=== PATIENT | male | born 1970 | race African-American/Black ===

== ENCOUNTER 2019-03-25 21:24 | Inpatient (IN) | payer SELFPAY ==
--- NOTE | 2019-03-25 22:07 | RAD ---
EXAM: 4 views of the right knee HISTORY: Knee pain COMPARISON: None FINDINGS: There is a comminuted fracture of the proximal tibia extending to both the medial and later al tibial plateaus. A knee effusion is seen. There are also appears to be a fracture that is minimally displaced of the fibular neck. IMPRESSION: Comminuted intra-articular proximal tibial fracture with possible fracture of the fibular neck.
[2019-03-25] MEDS ORDERED: Ibuprofen 800 MG TAB ONE (22:17)
[2019-03-25] MEDS ORDERED: Ondansetron PF 4 MG/2 ML Vial IVP PRN (23:00)
[2019-03-25] MEDS ORDERED: Morphine 2 MG/ML SYRINGE SLOW IVP PRN (23:00)
[2019-03-25] MEDS ORDERED: Dextrose 50% Abboject 50 ML SYRINGE SLOW IVP PRN (23:00)
[2019-03-25] MEDS ORDERED: Ondansetron ODT 4 MG TAB PO PRN (23:00)
[2019-03-25] MEDS ORDERED: Dextrose 5% in Water 1,000 ML IV PRN (23:00)
[2019-03-25] MEDS ORDERED: hydrALAZINE 20 MG/ML VIAL SLOW IVP PRN (23:00)
[2019-03-25] MEDS ORDERED: traMADol HCl 50 MG TAB PO PRN (23:11)
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
[2019-03-25 23:36] LABS: #Eosinphils 0.3 thou/uL (0.0-0.7); #Monocytes 1.1 thou/uL (0.11-0.59); #Neutrophils 11.1 thou/uL (1.40-6.50); %Basophils 0.3 % (0.0-1.0); %Eosinophils 2.2 % (0.0-10.0); %Lymphocytes 13.6 % (21.0-51.0); %Monocytes 7.7 % (0.0-10.0); %Neutrophils 76.2 % (42.0-75.0); Hemoglobin 13.8 g/dL (14.0-18.0); Mean Corpuscular HGB CONC 33.2 g/dL (32.0-36.0); Mean Corpuscular Hemoglobin 29.2 pg (27.0-31.0); Mean Corpuscular Volume 88.1 fL (78.0-98.0); Mean Platelet Volume 6.2 fL (7.4-10.4); Platelet Count 291 thou/uL (130-400); RBC Distribution Width 12.3 % (11.5-14.5); Red Blood Cell (RBC) Count 4.73 mill/uL (4.70-6.10); White Blood Cell (WBC) Count 14.5 thou/uL (4.8-10.8)
[2019-03-25 23:57] LABS: Anion Gap 10 mmol/L (10-20); BUN (Urea Nitrogen) 21 mg/dL (8.9-20.6); Calc. Creatinine Clearance 0 mL/min (70-130); Calcium 9.6 mg/dL (7.8-10.44); Carbon Dioxide 28 mmol/L (22-29); Chloride 105 mmol/L (98-107); Estimated GFR-MDRD 54; Glucose 88 mg/dL (70-105); Magnesium 2.1 mg/dL (1.6-2.6); Phosphorus 2.6 mg/dL (2.3-4.7); Potassium 4.3 mmol/L (3.5-5.1); Sodium 139 mmol/L (136-145)
[2019-03-26] MEDS: traMADol HCl 50 MG TAB PO SCH ×5 (00:01→23:02)
[2019-03-26] MEDS: Acetaminophen 500 MG TAB PO SCH ×5 (00:01→23:02)
[2019-03-26] MEDS: Sodium Chloride 0.9% 1,000 ML IV SCH ×3 (00:01→14:19)
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
[2019-03-26 00:57] VITALS: BMI 26.4
[2019-03-26] MEDS: Ibuprofen 600 MG TAB PO SCH ×2 (06:10→13:06)
[2019-03-26] MEDS: Polyethylene Glycol 3350 17 GM Packet PO SCH (07:45)
[2019-03-26 08:12] LABS: ALT (SGPT) 34 U/L (8-55); AST (SGOT) 21 U/L (5-34); Albumin 3.9 g/dL (3.5-5.0); Alkaline Phosphatase 95 U/L (40-150); Anion Gap 10 mmol/L (10-20); BUN (Urea Nitrogen) 21 mg/dL (8.9-20.6); Bilirubin, Total 0.7 mg/dL (0.2-1.2); Calc. Creatinine Clearance 100 mL/min (70-130); Calcium 8.8 mg/dL (7.8-10.44); Carbon Dioxide 25 mmol/L (22-29); Chloride 108 mmol/L (98-107); Estimated GFR-MDRD 86; Globulin 3.1 g/dL (2.4-3.5); Glucose 116 mg/dL (70-105); Potassium 3.7 mmol/L (3.5-5.1); Sodium 139 mmol/L (136-145)
[2019-03-26] MEDS ORDERED: Midazolam HCl 2 mg/2 ml Vial ONE (12:47)
[2019-03-26] MEDS ORDERED: Fentanyl 100 MCG/2 ML VIAL ONE (12:47)
[2019-03-26] MEDS ORDERED: Ondansetron ODT 4 MG TAB PO PRN (13:16)
[2019-03-26] MEDS ORDERED: Milk Of Magnesia 30 ML UDCUP PO PRN (13:16)
[2019-03-26] MEDS ORDERED: Cepastat Lozenges 1 LOZ PO PRN (13:16)
[2019-03-26] MEDS ORDERED: traMADol HCl 50 MG TAB PO PRN (13:16)
[2019-03-26] MEDS ORDERED: Fleet Enema 133 ML BOT PR PRN (13:16)
[2019-03-26] MEDS ORDERED: Ondansetron PF 4 MG/2 ML Vial IVP PRN (13:16)
[2019-03-26] MEDS ORDERED: Bisacodyl 10 MG SUPP PR PRN (13:16)
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
[2019-03-26] MEDS ORDERED: Bupivacaine HCl 0.5%/Epinephrine 1:200,000/PF 30 ml Vial ONE ×2 (13:49→13:55)
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
[2019-03-26] MEDS ORDERED: Ondansetron HCl/PF 4 MG/2 ML Vial IVP PRN (15:06)
[2019-03-26] MEDS ORDERED: Promethazine HCl 25 MG/ML VIAL IM PRN (15:06)
[2019-03-26] MEDS ORDERED: Promethazine HCl 25 MG/ML VIAL SLOW IVP PRN (15:06)
[2019-03-26] MEDS ORDERED: Ondansetron PF 4 MG/2 ML Vial ONE (15:20)
[2019-03-26] MEDS ORDERED: Dexamethasone 20 MG/5 ML VIAL ONE (15:20)
[2019-03-26] MEDS ORDERED: PROPOFOL 200 MG/20 ML VIAL ONE (15:20)
[2019-03-26] MEDS ORDERED: Ketorolac Tromethamine 30 MG/ML VIAL ONE (15:20)
[2019-03-26] MEDS ORDERED: Lidocaine 1% PF 5 ML VIAL ONE (15:20)
--- NOTE | 2019-03-26 15:35 | OP ---
DATE OF PROCEDURE: 03/26/2019 PREOPERATIVE DIAGNOSIS: Medial and lateral tibial plateau fracture of the right knee. POSTOPERATIVE DIAGNOSIS: Medial and lateral tibial plateau fracture of the right knee. PROCEDURE PERFORMED: Open reduction and internal fixation of lateral and medial tibial plateau fractures of the right knee. ANESTHESIA: General. DESCRIPTION OF PROCEDURE: The patient was given preoperative IV antibiotics, taken to the operating room, placed in supine position. Satisfactory general anesthesia was performed. The right lower extremity was sterilely prepped and draped in the usual fashion. After exsanguination, tourniquet of the right thigh was raised to 250 mmHg. The lateral tibial plateau had some depression. A curvilinear incision was made extending up to the anterior medial aspect of proximal tibia and then along the lateral joint space. The anterior compartment was sharply elevated off the lateral aspect of the proximal tibia. The fracture was identified. It was opened. Under fluoroscopic visualization, bone punch was used to elevate the portion of the lateral tibial plateau. It was then closed down and then internally fixed using a [employer] 4-hole LCP proximal tibial plate. Initially, a 4.5 cortical screw was placed into one of the metaphyseal holes and then four 5.0 locking screws were used proximally and distally and then one 6.5 cancellous screw was also used. This was all performed under fluoroscopic visualization and showed good reduction and good position of the plate and the screws. The medial and lateral plateau fractures were in good alignment and had good internal fixation. The wound was then copiously irrigated with antibiotic solution. It was closed using #1 Vicryl to close the anterior compartment muscle over the plate and screws, 0 Vicryl for the fat and subcutaneous tissues, and the skin was closed with skin antonia. The wound was then infiltrated with a total of 30 mL of 0.5% Marcaine with epinephrine. Sterile dressing was applied. Tourniquet was released. The patient was placed in a knee immobilizer. He was awakened, extubated, and transferred to recovery room in stable condition. ESTIMATED BLOOD LOSS: 50 mL. COMPLICATIONS: None. Job ID: [id number]
[2019-03-26] MEDS: Ketorolac Tromethamine 30 MG/ML VIAL IVP SCH ×2 (17:25→23:01)
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
[2019-03-26] MEDS: Senokot S 8.6-50 MG TAB PO SCH (20:19)
[2019-03-27] MEDS: Sodium Chloride 0.9% 1,000 ML IV SCH ×2 (00:09→07:37)
[2019-03-27] MEDS: traMADol HCl 50 MG TAB PO SCH ×2 (05:21→11:24)
[2019-03-27] MEDS: Acetaminophen 500 MG TAB PO SCH ×2 (05:21→11:24)
[2019-03-27] MEDS: Ketorolac Tromethamine 30 MG/ML VIAL IVP SCH (05:22)
[2019-03-27] MEDS ORDERED: traMADol HCl 50 MG TAB PO PRN (07:27)
[2019-03-27] MEDS: Polyethylene Glycol 3350 17 GM Packet PO SCH (07:51)
[2019-03-27] MEDS: Senokot S 8.6-50 MG TAB PO SCH (07:51)
[2019-03-27 07:53] LABS: #Lymphocytes 1.7 thou/uL (1.20-3.40); #Monocytes 1.5 thou/uL (0.11-0.59); #Neutrophils 13.8 thou/uL (1.40-6.50); %Basophils 0.3 % (0.0-1.0); %Eosinophils 0.2 % (0.0-10.0); %Lymphocytes 9.9 % (21.0-51.0); %Neutrophils 80.7 % (42.0-75.0); Hemoglobin 11.6 g/dL (14.0-18.0); Mean Corpuscular HGB CONC 35.3 g/dL (32.0-36.0); Mean Corpuscular Hemoglobin 30.9 pg (27.0-31.0); Mean Corpuscular Volume 87.4 fL (78.0-98.0); Mean Platelet Volume 6.5 fL (7.4-10.4); Platelet Count 235 thou/uL (130-400); RBC Distribution Width 12.2 % (11.5-14.5); Red Blood Cell (RBC) Count 3.77 mill/uL (4.70-6.10); White Blood Cell (WBC) Count 17.1 thou/uL (4.8-10.8)
[2019-03-27] MEDS ORDERED: Ferrous Gluconate 324 MG TAB PO SCH (08:00)
[2019-03-27 08:17] LABS: Anion Gap 11 mmol/L (10-20); BUN (Urea Nitrogen) 12 mg/dL (8.9-20.6); Calc. Creatinine Clearance 107 mL/min (70-130); Carbon Dioxide 23 mmol/L (22-29); Chloride 107 mmol/L (98-107); Estimated GFR-MDRD Greater than 90; Glucose 145 mg/dL (70-105); Magnesium 2.1 mg/dL (1.6-2.6); Phosphorus 2.3 mg/dL (2.3-4.7); Sodium 137 mmol/L (136-145)
[2019-03-27] MEDS ORDERED: Aspirin 81 mg Enteric Coated Tablet PO SCH (09:00)
[2019-03-27] MEDS ORDERED: Multivitamin W/ Minerals 1 TAB PO SCH (09:00)
[2019-03-27 13:59] VITALS: BP 142/85; TEMP 98.2
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
[2019-03-28] MEDS ORDERED: Ibuprofen 600 MG TAB PO SCH (22:00)
== END 2019-03-27 13:55 | disposition home or self-care (01) | DRG 493 ==
LOC: ERS 21:24 → SURG B 23:42
PROVIDERS: ADMIT Orthopaedic Surgery; ATTEND Orthopaedic Surgery
PROC: 0QSG04Z Reposition Right Tibia with Internal Fixation Device, Open Approach (ICD-10-PCS; principal; 2019-03-26)
DX: S82.141A Displaced bicondylar fracture of right tibia, initial encounter for closed fracture (principal); N17.9 Acute kidney failure, unspecified; V86.56XA Driver of dirt bike or motor/cross bike injured in nontraffic accident, initial encounter; S82.831A Other fracture of upper and lower end of right fibula, initial encounter for closed fracture
CPT/HCPCS: 36415; 71045; 76000; 80048; 80053; 83735; 84100; 85025; C1713; G0390; J0360; J0670; J0690; J1100; J1885; J2001; J2250; J2270; J2405; J2704; J3010